=== PATIENT | male | born 1960 | race Caucasian/White ===

== ENCOUNTER → 2021-07-02 10:02 | Outpatient (CLI) | payer OTHER, SELFPAY | PROVIDERS: Visit Provider Emergency Medicine | DX: U07.1 COVID-19 (principal) ==

== ENCOUNTER 2021-07-02 10:10 | Emergency (ER) | payer OTHER, SELFPAY ==
[2021-07-02 10:11] VITALS: BP 148/98; PULSE 84; RESP 18; TEMP 36.6; O2SAT 95; BMI 34.9
--- NOTE | 2021-07-02 10:48 | XR_ITS ---
PROCEDURE: XR CHEST PORTABLE CLINICAL HISTORY: cough, covid + COMPARISON: No exams were available for comparison FINDINGS: Normal heart size. There is mild prominence the right hilum which may be related to prominent ascending aorta. The lungs are clear without infiltrates, suspicious nodules, or pleural effusions. No acute bony abnormalities. IMPRESSION: No acute finding Dictated by: Miguel Scherer MD 07/02/2021 11:06 Miguel Scherer MD in [place] 07/02/2021 11:06
--- NOTE | 2021-07-02 10:57 | [facility].EDGENADL ---
ED Disposition Clinical Impression: COVID-19 virus infection Disposition: Home, Self-Care Condition on Discharge: Good Additional Instructions: Return tomorrow morning at 8 AM for monoclonal antibody infusion. Return to the emergency department sooner if any severe shortness of breath. COVID-19 Isolation: Isolate yourself for a MINIMUM of 10 days from onset of symptoms: What to do: Monitor your symptoms. If you have an emergency warning sign (including trouble breathing), seek emergency medical care immediately. Stay in a separate room from other household members, if possible. Use a separate bathroom, if possible. Avoid contact with other members of the household and pets. Don?t share personal household items, like cups, towels, and utensils. Wear a mask when around other people if able. You can be around others AFTER: 10 days since symptoms first appeared AND 24 hours with no fever without the use of fever-reducing medications AND Other symptoms of COVID-19 are improving Referrals: Provider,Referral, [Primary Care Provider] - - Critical Care Critical Care Time: No Attestation: On 07/02/21, the high probability of a clinically significant, sudden or life threatening deterioration of the following system(s) required my full and direct attention, intervention and personal management. The time I documented below is in addition to time spent performing reported procedures but includes the following listed in this critical care notation. Medical Decision Making - Giovany Inquiry Pt receiving controlled substance: No Vital Signs: 07/02/21 10:11 Temperature 97.9 F Temperature Source Oral Pulse Rate [Left Radial] 84 Respiratory Rate 18 Blood Pressure [Left Arm] 148/98 H Blood Pressure Mean [Left Arm] 114 Blood Pressure Source [Left Arm] Automatic Cuff Blood Pressure Position [Left Arm] Sitting 02 Sat by Pulse Oximetry 95 Oxygen Delivery Method Room Air - Radiology Data #1 Image(s): Chest Image Reviewed: Yes I reviewed the patient's radiology image, Yes I have reviewed radiologist's interpretation PROCEDURE: XR CHEST PORTABLE CLINICAL HISTORY: cough, covid + COMPARISON: No exams were available for comparison FINDINGS: Normal heart size. There is mild prominence the right hilum which may be related to prominent ascending aorta. The lungs are clear without infiltrates, suspicious nodules, or pleural effusions. No acute bony abnormalities. IMPRESSION: No acute finding Dictated by: Miguel Scherer MD 07/02/2021 11:06 Miguel Scherer MD in [place] 07/02/2021 11:06 Medical Decision Narrative: The patient has been scheduled for antibody infusion for 8 AM tomorrow morning. General Adult HPI - General Chief complaint: Upper Respiratory Infection Stated complaint: covid pos 06/29 Time Seen by Provider: 07/02/21 10:57 Mode of Arrival: Ambulatory Limitations: No Limitations Description of Symptoms (Recalled from ER Triage Doc. by RN): Pt reports tested positive for covid 19 on 06/29/21. States his family doctor who is practices [place] advised pt to get the antibody infusion but was unable to write the order for pt. Pt states has had symptoms of productive cough and fatigue. - History of Present Illness HPI narrative: Complains of Covid . States that his gave it to him. States he has been symptomatic for 1 week. Sinus symptoms and cough. Intermittent shortness of breath. States that he would like an antibody infusion, but his primary care doctor is in another state and cannot order it. He has hypertension and diabetes. He is a non-smoker and does not have COPD or heart disease. - Related Data Allergies Allergy/AdvReac Type Severity Reaction Status Date / Time No Known Allergies Allergy Verified 07/02/21 10:48 [facility] History - Hepatitis A Screen Drug use history?: No High risk sexual behaviors?: No History of sexually transmi
[2021-07-02 11:40] VITALS: BP 132/87; PULSE 78; RESP 20; TEMP 36.6; O2SAT 93
== END 2021-07-02 11:40 | disposition home or self-care (01) ==
PROVIDERS: Emergency Provider Emergency Medicine
DX: U07.1 COVID-19 (principal); I10 Essential (primary) hypertension; E11.9 Type 2 diabetes mellitus without complications
CPT/HCPCS: 71045; 99282

== ENCOUNTER → 2021-07-03 09:59 | Outpatient (CLI) | payer OTHER, SELFPAY ==
[2021-07-03] VITALS (7 sets, daily range): BP systolic 164–175; BP diastolic 84–108; PULSE 69–80; RESP 18; TEMP 36.1; O2SAT 92–95
== END ==
PROVIDERS: PCP Emergency Medicine; Visit Provider Emergency Medicine
DX: U07.1 COVID-19 (principal); Z23 Encounter for immunization
CPT/HCPCS: 96365